=== PATIENT | male | born 1985 | race Hispanic/Latino ===

== ENCOUNTER 2022-09-20 02:29 | Emergency (ER) | payer SELFPAY ==
[2022-09-20] VITALS (14 sets, daily range): BP systolic 102–130; BP diastolic 57–82
[~2022-09-20] VITALS: Ht 177.8 cm; Wt 103.0 kg
[2022-09-20 03:06] LABS: BASO% 0.1 % (0-3); EOS% 0.2 % (0-8); HEMATOCRIT 44.5 % (39.0-50.0); HEMOGLOBIN 15.6 g/dl (14.0-18.0); IMMATURE GRANULOCYTES 0.2 % (0.0-5.0); LYMPH% 7.3 % (15-41); MEAN CELL VOLUME 93.7 fL CALC (80.0-100.0); MEAN CORPUSCULAR HGB 32.8 pG CALC (26.0-32.0); MEAN CORPUSCULAR HGB CONC 35.1 g/dL CAL (32.0-36.0); NEUT# 12.85 thou/uL (1.82-7.42); NEUT% 85.2 % (42-76); RED BLOOD COUNT 4.75 mill/uL (4.70-6.10); RED CELL DISTRI WIDTH 10.9 % (11.5-15.5)
[2022-09-20 03:29] LABS: ALBUMIN 4.6 g/dL (3.2-5.0); ALKALINE PHOSPHATASE 64 u/l (38-126); AMYLASE 70 u/l (30-110); ANION GAP 12 (6-22 (CALC)); BILIRUBIN, TOTAL 0.5 mg/dL (0.0-1.4); BUN 16 mg/dL (9-20); BUN/CREATININE RATIO 19 (12-20 (CALC)); CARBON DIOXIDE 26 mmol/l (22-30); CHLORIDE 105 mmol/l (95-108); CREATININE 0.9 mg/dL (0.7-1.3); GFR FOR AFR.AMER. > 60 ML/MIN (>=60 (CALC)); GFR OTHER RACES > 60 ML/MIN (>=60 (CALC)); LIPASE 51 u/l (23-300); POTASSIUM 3.9 mmol/l (3.5-5.1); SGOT/AST 45 u/l (17-59); SODIUM 139 mmol/l (137-146); TOTAL PROTEIN 7.7 g/dL (6.3-8.2)
[2022-09-20 04:29] LABS: URINE BILIRUBIN - DIPSTICK NEGATIVE (NEGATIVE); URINE BLOOD DIPSTICK NEGATIVE (NEGATIVE); URINE COLOR YELLOW; URINE GLUCOSE - DIPSTICK NEGATIVE (NEGATIVE); URINE KETONE NEGATIVE (NEGATIVE); URINE LEUK ESTERASE NEGATIVE (NEGATIVE); URINE PH 5.5 (4.5-8.0); URINE PROTEIN - DIPSTICK NEGATIVE (NEG-TRACE); URINE SPECIFIC GRAVITY >=1.030; URINE UROBILINOGEN - DIPSTICK 0.2 E.U./dL (0.2)
[2022-09-20 04:30] LABS: URINE NITRITE - DIPSTICK NEGATIVE (Negative)
[2022-09-20] MEDS ORDERED: ONDANSETRON4 MG PO (05:22)
[2022-09-20] MEDS ORDERED: METRONIDAZOLE500 MG PO (05:22)
[2022-09-20] MEDS ORDERED: CIPROFLOXACN500 MG PO (05:22)
== END 2022-09-20 06:51 | disposition home or self-care (01) | DRG 392 ==
LOC: ED 02:29
PROVIDERS: Emergency Medicine
DX: K52.9 Noninfective gastroenteritis and colitis, unspecified (principal)
CPT/HCPCS: Q9967

== ENCOUNTER 2024-09-24 05:00 | Emergency (ER) | payer SELFPAY ==
[~2024-09-24] VITALS: Ht 177.8 cm; Wt 86.0 kg
[~2024-09-24 05:00] MED LIST: CIPROFLOXACN500 MG PO; METRONIDAZOLE500 MG PO; ONDANSETRON4 MG PO
[2024-09-24] MEDS ORDERED: SODIUM CHLORIDE 0.9% 1,000 ML IV STA (05:06)
[2024-09-24] MEDS ORDERED: FAMOTIDINE 10MG/ML 2ML SDV IV STA (05:06)
[2024-09-24] MEDS ORDERED: methylPREDNISolone SODIUM SUCC 125 MG/2 ML SDV IV STA (05:06)
[2024-09-24] MEDS ORDERED: DiphenhydrAMINE HCL 50 MG/ML SDV IV STA (05:06)
[2024-09-24 05:08] VITALS: BP 118/77
[2024-09-24 05:27] LABS: BASO% 0.1 % (0-3); EOS% 0.2 % (0-8); IMMATURE GRANULOCYTES 3.1 % (0.0-5.0); LYMPH% 26.4 % (15-41); MEAN CELL VOLUME 93.5 fL CALC (80.0-100.0); MEAN CORPUSCULAR HGB 33.4 pG CALC (26.0-32.0); MEAN CORPUSCULAR HGB CONC 35.7 g/dL CAL (32.0-36.0); MONO% 7.1 % (2-13); NEUT# 8.66 thou/uL (1.82-7.42); NEUT% 63.1 % (42-76); RED BLOOD COUNT 5.96 mill/uL (4.70-6.10); RED CELL DISTRI WIDTH 11.2 % (11.5-15.5)
[2024-09-24 05:30] VITALS: BP 113/74
[2024-09-24 05:30] LABS: HEMATOCRIT 55.7 % (39.0-50.0); HEMOGLOBIN 19.9 g/dl (14.0-18.0)
[2024-09-24 05:39] LABS: ALBUMIN 4.4 g/dL (3.2-5.0); BILIRUBIN, TOTAL 0.7 mg/dL (0.2-1.3); POTASSIUM 4.4 mmol/l (3.5-5.1); TOTAL PROTEIN 7.9 g/dL (6.3-8.2)
[2024-09-24 06:00] VITALS: BP 110/77
[2024-09-24] MEDS ORDERED: BENADRYL25 M1 PO (06:08)
[2024-09-24] MEDS ORDERED: PREDNISONE50 MG PO (06:08)
[2024-09-24] MEDS ORDERED: ZYRTEC10 MG PO (06:08)
[2024-09-24 06:16] VITALS: BP 110/77
== END 2024-09-24 06:16 | disposition home or self-care (01) | DRG 607 ==
LOC: ED 05:00
PROVIDERS: Family Medicine
DX: L50.9 Urticaria, unspecified (principal)
CPT/HCPCS: J1200